=== PATIENT | female | born 1975 | race Caucasian/White ===

== ENCOUNTER 2017-04-04 02:41 | Emergency (ER) | payer BC ==
--- NOTE | 2017-04-04 04:59 | ED NURSING NOTES ---
Clinical Report - Nurses [facility] [address] [place] [address] 04/04/2017 2:42 [id number] Triage time 02:47 Apr 04 2017. Acuity: LEVEL 3. Chief Complaint: CHEST DISCOMFORT. SEPSIS SCREEN: Sepsis Screen: negative. Negative (no infection suspected/documented). --02:52 Ida Montgomery 02:47 04/04/17. BP: 128/64. HR: 80. RR: 20. O2 saturation: 99% on room air. Temp: 98 F (oral). Pain level now: 10. --02:52 Ida Montgomery. Weight: 108.8 kg stated. Height/Length: 63 inches Per Patient. BMI: 42.5. --02:48 Ida Montgomery. Medications Flonase Nasal 2 sprays, 2x a day as needed. Sudafed Oral (Tablet 30 mg). --02:49 Ida Montgomery. Medication/allergy information source: the patient. --02:52 Ida Montgomery. Allergies None. --02:49 Ida Montgomery. History Arrived by private vehicle. Historian: patient. Accompanied by family. Primary physician (aslam). Onset. (few weeks). ( Patient reports chest pain for a few weeks now. She states its off and on and describes it as a pressure. She reports family history of Atrial fibrillation and states she wanted to make sure it was not that.). 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 PAST MEDICAL HX: Immunizations: up-to-date. Last normal menstrual period- 2 weeks ago. SOCIAL HX: Never smoker. Occasional alcohol use. No drug use. No infectious disease exposure. ABUSE ASSESSMENT: No report of abuse. FALL RISK ASSESSMENT: Fall risk assessment completed. No fall risk identified. NUTRITIONAL RISK ASSESSMENT: The nutritional risk assessment revealed no deficiencies. FUNCTIONAL ASSESSMENT: Functional assessment: no impairments noted. LEARNING NEEDS ASSESSMENT: The learning needs assessment revealed no barriers. SKIN INTEGRITY ASSESSMENT: Skin integrity risk assessment completed. No skin integrity risk identified. --02:52 Ida Montgomery. PROBLEMS: Atypical Chest Pain. Paresthesia. Palpitations. Inner Ear Problems. [place] Palsy ?. Headache. Meningitis. ADD - Attention Deficit Disorder. Migraine Headache. --02:49 Ida Montgomery. ADDITIONAL SURGERIES: Cholecystectomy. Lap band. --02:49 Ida Montgomery. Interventions ID band on patient. To treatment room. --02:52 Ida Montgomery. PHYSICAL ASSESSMENT GENERAL / NEURO / PSYCH: Alert. Oriented X 4. Appears in no acute distress. HEENT: Mucous membranes are pink. RESPIRATORY: Respirations not labored. CVS: Normal sinus rhythm noted. GI / : Abdomen soft and nontender. EXTREMITIES: No lower extremity edema. SKIN: Skin is warm and dry. --02:53 Ida Montgomery. NURSING PROGRESS NOTES EKG time: (Apr 04 2017). EKG was performed by a tech and shown to the ED physician. --02: Ida Montgomery electronic device monitor, pulse oximeter and NIBP monitor placed on patient; monitor alarms on. Patient gowned. Reassurance given to the patient. Two patient identifiers checked. Call light placed in reach. Side rails up x 1. Bed placed in lowest position. Brakes of bed on. Patient ready for evaluation- chart flagged and ED physician notified. --02:53 Ida Montgomery 02:53 04/04/2017 Site #1 started via IV in the left antecubital space with an 20g angiocath, with aseptic technique and good blood return; one attempt. Blood drawn: rainbow set. Labeled in the presence of the patient and sent to the lab. Saline lock flushed with 10 mL saline. --02:53 Ida Montgomery 03:09 04/04/17. BP: 120/60. HR: 65. RR: 20. O2 saturation: 96% on room air. Pain level now: 5/10. --03:09 Ida Montgomery 03:40 04/04/2017 Alprazolam PO Tablets 0.5 mg given. Allergies verified, confirmed 5 rights and sedative warning given to the patient and patient's family. --03:40 Ida Montgomery 04:00 04/04/17. BP: 126/69. HR: 65. RR: 20. O2 saturation: 99% on room air. Pain level now: 02/23. --04:55 Ida Montgomery ( Patient has no complaints at this time). --04:55 Ida Montgomery 05:05 04/04/2017 Site #1 removed upon discharge. Catheter intact. Bandaid applied. --05:38 Ida Montgomery. DISPOSITION / DISCHARGE 05:37 04/04/17. Condition at departure: stable. The goals identified in the patient's plan of care were met. No learning barriers present. Discharge instructions provided and reviewed with the patient and spouse. Reviewed medication(s) side effects, precautions, dosing and course information. Prescription(s) given to the patient. Reviewed need for increased fluid intake. Patient and spouse verbalized understanding. Written instructions provided in Bangladeshi. ( Follow up with your PCP in five days. Avoid stimulants and NSAIDS. Continue taking your prilosec as well as the prescribed medications. Return if you have worsening chest pain. Patient and spouse verbalized understanding and had no additional questions at this time.). The patient was discharged by the physician. She was discharged home and accompanied by spouse. She left the Emergency Department ambulatory and via private vehicle. Spouse driving. FALL RISK ASSESSMENT: Fall risk assessment completed. No fall risk identified. --05:37 Ida Montgomery 05:05 04/04/17. BP: 115/67. HR: 60. RR: 18. O2 saturation: 98% on room air. Temp: 97.9 F (oral). Pain level now: 12/24. --05:37 Ida Montgomery. Locked/Released at 04/04/2017 6:20 by Ida Montgomery,
--- NOTE | 2017-04-04 04:59 | ED NURSING NOTES ---
Clinical Report - Nurses [facility] [address] [place] [address] 04/04/2017 2:42 [id number] Triage time 02:47 Apr 04 2017. Acuity: LEVEL 3. Chief Complaint: CHEST DISCOMFORT. SEPSIS SCREEN: Sepsis Screen: negative. Negative (no infection suspected/documented). --02:52 Ida Montgomery 02:47 04/04/17. BP: 128/64. HR: 80. RR: 20. O2 saturation: 99% on room air. Temp: 98 F (oral). Pain level now: 10. --02:52 Ida Montgomery. Weight: 108.8 kg stated. Height/Length: 63 inches Per Patient. BMI: 42.5. --02:48 Ida Montgomery. Medications Flonase Nasal 2 sprays, 2x a day as needed. Sudafed Oral (Tablet 30 mg). --02:49 Ida Montgomery. Medication/allergy information source: the patient. --02:52 Ida Montgomery. Allergies None. --02:49 Ida Montgomery. History Arrived by private vehicle. Historian: patient. Accompanied by family. Primary physician (aslam). Onset. (few weeks). ( Patient reports chest pain for a few weeks now. She states its off and on and describes it as a pressure. She reports family history of Atrial fibrillation and states she wanted to make sure it was not that.). 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 PAST MEDICAL HX: Immunizations: up-to-date. Last normal menstrual period- 2 weeks ago. SOCIAL HX: Never smoker. Occasional alcohol use. No drug use. No infectious disease exposure. ABUSE ASSESSMENT: No report of abuse. FALL RISK ASSESSMENT: Fall risk assessment completed. No fall risk identified. NUTRITIONAL RISK ASSESSMENT: The nutritional risk assessment revealed no deficiencies. FUNCTIONAL ASSESSMENT: Functional assessment: no impairments noted. LEARNING NEEDS ASSESSMENT: The learning needs assessment revealed no barriers. SKIN INTEGRITY ASSESSMENT: Skin integrity risk assessment completed. No skin integrity risk identified. --02:52 Ida Montgomery. PROBLEMS: Atypical Chest Pain. Paresthesia. Palpitations. Inner Ear Problems. [place] Palsy ?. Headache. Meningitis. ADD - Attention Deficit Disorder. Migraine Headache. --02:49 Ida Montgomery. ADDITIONAL SURGERIES: Cholecystectomy. Lap band. --02:49 Ida Montgomery. Interventions ID band on patient. To treatment room. --02:52 Ida Montgomery. PHYSICAL ASSESSMENT GENERAL / NEURO / PSYCH: Alert. Oriented X 4. Appears in no acute distress. HEENT: Mucous membranes are pink. RESPIRATORY: Respirations not labored. CVS: Normal sinus rhythm noted. GI / : Abdomen soft and nontender. EXTREMITIES: No lower extremity edema. SKIN: Skin is warm and dry. --02:53 Ida Montgomery. NURSING PROGRESS NOTES EKG time: (Apr 04 2017). EKG was performed by a tech and shown to the ED physician. --02: Ida Montgomery moose hunter, pulse oximeter and NIBP monitor placed on patient; monitor alarms on. Patient gowned. Reassurance given to the patient. Two patient identifiers checked. Call light placed in reach. Side rails up x 1. Bed placed in lowest position. Brakes of bed on. Patient ready for evaluation- chart flagged and ED physician notified. --02:53 Ida Montgomery 02:53 04/04/2017 Site #1 started via IV in the left antecubital space with an 20g angiocath, with aseptic technique and good blood return; one attempt. Blood drawn: rainbow set. Labeled in the presence of the patient and sent to the lab. Saline lock flushed with 10 mL saline. --02:53 Ida Montgomery 03:09 04/04/17. BP: 120/60. HR: 65. RR: 20. O2 saturation: 96% on room air. Pain level now: 5/10. --03:09 Ida Montgomery 03:40 04/04/2017 Alprazolam PO Tablets 0.5 mg given. Allergies verified, confirmed 5 rights and sedative warning given to the patient and patient's family. --03:40 Ida Montgomery 04:00 04/04/17. BP: 126/69. HR: 65. RR: 20. O2 saturation: 99% on room air. Pain level now: 02/23. --04:55 Ida Montgomery ( Patient has no complaints at this time). --04:55 Ida Montgomery 05:05 04/04/2017 Site #1 removed upon discharge. Catheter intact. Bandaid applied. --05:38 Ida Montgomery. DISPOSITION / DISCHARGE 05:37 04/04/17. Condition at departure: stable. The goals identified in the patient's plan of care were met. No learning barriers present. Discharge instructions provided and reviewed with the patient and spouse. Reviewed medication(s) side effects, precautions, dosing and course information. Prescription(s) given to the patient. Reviewed need for increased fluid intake. Patient and spouse verbalized understanding. Written instructions provided in Estonian. ( Follow up with your PCP in five days. Avoid stimulants and NSAIDS. Continue taking your prilosec as well as the prescribed medications. Return if you have worsening chest pain. Patient and spouse verbalized understanding and had no additional questions at this time.). The patient was discharged by the physician. She was discharged home and accompanied by spouse. She left the Emergency Department ambulatory and via private vehicle. Spouse driving. FALL RISK ASSESSMENT: Fall risk assessment completed. No fall risk identified. --05:37 Ida Montgomery 05:05 04/04/17. BP: 115/67. HR: 60. RR: 18. O2 saturation: 98% on room air. Temp: 97.9 F (oral). Pain level now: 12/24. --05:37 Ida Montgomery. Locked/Released at 04/04/2017 6:20 by Ida Montgomery,
--- NOTE | 2017-04-04 04:59 | ED CLINICAL REPORT ---
Clinical Report - Physicians/Mid Levels [facility] [address] [place] [address] 04/04/2017 2:42 Patient: SUSANA DAVIS Time Seen: 03:15 Apr 04 2017. Arrived- By private vehicle. Historian- patient. CPT: ER phys charges level 4 plus (#[id number]). EKG interpretation (#[id number]). HISTORY OF PRESENT ILLNESS Chief Complaint: CHEST PAIN. 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 ( Patient reports chest pain for a few weeks now. She states its off and on and describes it as a pressure. She reports family history of Atrial fibrillation and states she wanted to make sure it was not that.). and is still present. Onset during light activity. At its maximum, severity described as mild. When seen in the E.D., it was almost gone. Modifying factors. Not worsened by anything. Not relieved by anything. It is described as pressure and it is described as located in the central chest area. No nausea, vomiting, difficulty breathing or diaphoresis. Similar symptoms previously: None. Recent medical care: Not recently seen/assessed. REVIEW OF SYSTEMS No fever, chills, cough, pedal edema or calf pain. No fainting episodes, sore throat, abdominal pain, black stools or difficulty with urination. No skin rash, enlarged lymph nodes or joint pain. All systems otherwise negative, except as recorded above. PAST HISTORY Atypical Chest Pain. Paresthesia. Palpitations. Inner Ear Problems. [place] Palsy ?. Headache. Meningitis. ADD - Attention Deficit Disorder. Migraine Headache. ADDITIONAL SURGERIES: Cholecystectomy. Lap band. Medications: Flonase Nasal 2 sprays, 2x a day as needed. Sudafed Oral (Tablet 30 mg). Allergies: None. SOCIAL HISTORY Never smoker. Occasional alcohol use. No drug use. ADDITIONAL NOTES The nursing notes have been reviewed. PHYSICAL EXAM Vital Signs: 04/04/2017 02:47 BP: 128/64. HR: 80. RR: 20. O2 saturation: 99%. Temp: 98 F. Pain level now: 5/10. Appearance: Alert. No acute distress. Anxious. Eyes: Pupils equal, round and reactive to light. Eyes normal inspection. ENT: Ears normal. Nose normal. Pharynx normal. Neck: Normal inspection. Neck supple. CVS: Normal heart rate and rhythm. Heart sounds normal. Pulses normal. Rhythm normal. No cardiac murmur or extra heart sounds. Respiratory: No respiratory distress. Breath sounds normal. Chest nontender. Abdomen: Soft. Moderate tenderness in the epigastric area. Bowel sounds normal. Back: Normal external inspection. Skin: Skin warm. Normal skin color. No rash. Extremities: Extremities exhibit normal ROM. No calf tenderness. No lower extremity edema. Neuro: Oriented X 3. No motor deficit. No sensory deficit. Reflexes normal. LABS, X-RAYS, AND EKG EKG: Normal sinus rhythm. Normal P waves. Normal JUAN M. Q waves in lead V1, V2 and V3. Poor R wave progression. Normal axis. Mild T wave inversion in lead III, aVF and V1. Prior EKG unavailable. The study has been interpreted contemporaneously. The study has been independently viewed by me. The EKG appears to be a good tracing. Chest X-ray: Normal Chest X-Ray. Laboratory Tests: CBC w Diff: (GLADYS: 04/04/2017 02:45) ( [facility] 04[facility]04[facility] 03:42) Final results Test Result Flag Units (Reference) WHITE BLOOD COUNT 9.7 K/uL (4.5-11.5) RED BLOOD COUNT 4.62 M/uL (4.00-5.20) HEMOGLOBIN 13.6 gm/dL (12.0-16.0) HEMATOCRIT 41.5 % (36.0-46.0) MEAN CELL VOLUME 90 fL (80-100) MEAN CORPUSCULAR HGB 29 pg (26-34) MEAN CORPUSCULAR HGB CONC 33 g/dL (31-37) RED CELL DISTRIBUTION WIDTH 13.4 % (11.6-14.8) PLATELET COUNT 206 K/uL (150-400) LYMPH % 34.6 % (25-40) MONO % 5.2 % (3-14) GRANULOCYTE % 60.2 (53-90) [id number]: (GLADYS: 04/04/2017 02:45) ( [facility] 04/04/2017 03:42) Final results Test Result Flag Units (Reference) D-DIMER QUANTITATIVE < 0.27 L ug/mLFEU (0.27-0.52) The primary value of this quantitative assay relates toits negative predictive value (i.e. exclusion) of pulmonaryembolism/deep vein thrombosis/DIC.Elevated levels of d-dimer may also occur with:, age, cancer, inflammation, liver disease,post-op, infection, hematoma, coronary disease, peripheralarteriopathy, bleeding disorders and thrombolytic treatment.Results should be correlated with other clinical andradiological data.Testing Methodology: Latex Immunoassay BNP: (GLADYS: 04/04/2017 02:45) ( [facility] 04/04/2017 03:52) Final results Test Result Flag Units (Reference) B-TYPE NATRIURETIC PEPTIDE 34.5 pg/ml (5-100) TSH: (GLADYS: 04/04/2017 02:45) ( [facility] 04/04/2017 03:51) Final results Test Result Flag Units (Reference) THYROID STIMULATING HORMONE 2.396 uIU/mL (0.34-3.74) CHEM 13 PANEL: (GLADYS: 04/04/2017 02:45) ( [facility] 04/04/2017 03:51) Final results Test Result Flag Units (Reference) GLUCOSE 109 mg/dL (70-110) BUN 13 mg/dL (7-18) CREATININE 0.9 mg/dL (0.6-1.3) Estimated GFR >60 mL/min Estimated GFR- >60 mL/min Note: Persistent reduction over 3 months in eGFR<60 mL/min/1.73 m2 defines CKD. Patients with eGFR values>=60 mL/min/1.73 m2 may also have CKD if evidence ofpersistent proteinuria. Additional information may be foundat www.kidney.org. SODIUM 137 mmol/L (136-145) POTASSIUM 3.5 mmol/L (3.5-5.1) CHLORIDE 104 mmol/L (98-107) CARBON DIOXIDE 27 mmol/L (21-32) CALCIUM 8.8 mg/dL (8.5-10.1) TOTAL PROTEIN 7.5 g/dL (6.4-8.2) ALBUMIN 3.4 g/dL (3.3-5.0) BILIRUBIN, TOTAL 0.3 mg/dL (0.0-1.0) ALKALINE PHOSPHATASE 76 U/L (46-116) AST (SGOT) 13 L U/L (15-37) ALT (SGPT) 32 U/L (12-78) MAGNESIUM 1.8 mg/dL (1.8-2.4) CPK 82 U/L (24-260) TROPONIN I <0.05 L ng/mL (0.00-1.5) TROPONIN REFERENCE RANGE:<0.1 NEGATIVE0.1-1.5 INDETERMINANT>1.5 POSITIVE . PROGRESS AND PROCEDURES Course of Care: 04:59 04/04/17. Much better after xanax. Still has some mild epigastric pain on palpation. Does have a hx of reflux and symptoms of esophagitis on exam. Patient/family counseled. Disposition: Discharged. Condition: stable and improved. CLINICAL IMPRESSION Atypical chest pain .12 lead EKG performed. INSTRUCTIONS No strenuous activity. Rest. Do not work for two days until better. Avoid stimulants (such as cigarettes, coffee, cold medicines, sinus medicines, street drugs). Avoid alcohol and NSAIDS. Examples of NSAIDS include aspirin, ibuprofen (Advil) and naproxen (Aleve). Avoid spicy foods. Other diet: Avoid caffeine. (Continue prilosec at 40 mg a day.). Warnings: Further evaluation is necessary. GENERAL WARNINGS: Return or contact your physician immediately if your condition worsens or changes unexpectedly, if not improving as expected, or if other problems arise. Your Current Medications: CONTINUE TAKING THE FOLLOWING MEDICATIONS: Flonase Nasal : 2 sprays 2x a day, prn. Sudafed Oral : Tablet 30 mg. Prescription Medications: Alprazolam 0.5 mg: take 1 orally every 8 hours as needed for anxiety or sleep. Dispense fifteen (15). No refill. Carafate 1 gm tablets: take 1 orally four times daily (1 hour before meals and at bedtime). Dispense sixty (60). No refills. Substitution is permissible. Follow-up: Follow up with your doctor in five days. Call for an appointment. Understanding of the discharge instructions verbalized by patient. Discharge instructions reviewed with and understanding was verbalized by spouse. (Electronically signed by Luigi Malik MD 04/04/2017 20:49)
--- NOTE | 2017-04-04 04:59 | ED ORDER SUMMARY ---
..... 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) (03:04/04/2017 Patti STEPHENS) (3:29 RKaruga) Chest 1V Urgent (03:04/04/2017 Patti STEPHENS) (Ack 3:30 RKaruga) (3:30 RFay) Cardiac Panel Stat (03:04/04/2017 Patti STEPHENS) (Ack 3:30 [place]) (4:15 HSoule) BNP Urgent (03:04/04/2017 Patti STEPHENS) (Ack 3:30 [place]) (4:15 HSoule) D-Dimer Urgent (03:04/04/2017 Patti STEPHENS) (Ack 3:30 RKaruga) (3:49 HSoule) TSH Urgent (03:04/04/2017 Patti STEPHENS) (Ack 3:30 RKaruga) (4:15 HSoule) Oxygen (2 L/min) (NC) (03:04/04/2017 Patti STEPHENS) (3:29 RKaruga) Pulse oximeter (03:04/04/2017 Patti STEPHENS) (3:29 RKaruga) EKG - ER Stat (:04/04/2017 Patti STEPHENS) (3:29 RKaruga) MEDICATION ORDERS: Alprazolam PO 0.5 mg (NOW) (03:04/04/2017 Patti STEPHENS) (Ack 3:32 HSoule) (3:40 HSoule) IV FLUIDS: IV Saline Lock (:04/04/2017 Patti STEPHENS) (3:32 HSoule) ORDER SHEET NOTES: [Electronically signed by Ida Montgomery (06:20 04/04/2017)] [Electronically signed by Luigi Malik MD (20:49 04/04/2017)] [Electronically locked/signed by Ida Montgomery (06:20 04/04/2017)]
--- NOTE | 2017-04-04 04:59 | ED CLINICAL REPORT ---
Clinical Report - Physicians/Mid Levels [facility] [address] [place] [address] 04/04/2017 2:42 Patient: SUSANA DAVIS Time Seen: 03:15 Apr 04 2017. Arrived- By private vehicle. Historian- patient. CPT: ER phys charges level 4 plus (#[id number]). EKG interpretation (#[id number]). HISTORY OF PRESENT ILLNESS Chief Complaint: CHEST PAIN. 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 ( Patient reports chest pain for a few weeks now. She states its off and on and describes it as a pressure. She reports family history of Atrial fibrillation and states she wanted to make sure it was not that.). and is still present. Onset during light activity. At its maximum, severity described as mild. When seen in the E.D., it was almost gone. Modifying factors. Not worsened by anything. Not relieved by anything. It is described as pressure and it is described as located in the central chest area. No nausea, vomiting, difficulty breathing or diaphoresis. Similar symptoms previously: None. Recent medical care: Not recently seen/assessed. REVIEW OF SYSTEMS No fever, chills, cough, pedal edema or calf pain. No fainting episodes, sore throat, abdominal pain, black stools or difficulty with urination. No skin rash, enlarged lymph nodes or joint pain. All systems otherwise negative, except as recorded above. PAST HISTORY Atypical Chest Pain. Paresthesia. Palpitations. Inner Ear Problems. [place] Palsy ?. Headache. Meningitis. ADD - Attention Deficit Disorder. Migraine Headache. ADDITIONAL SURGERIES: Cholecystectomy. Lap band. Medications: Flonase Nasal 2 sprays, 2x a day as needed. Sudafed Oral (Tablet 30 mg). Allergies: None. SOCIAL HISTORY Never smoker. Occasional alcohol use. No drug use. ADDITIONAL NOTES The nursing notes have been reviewed. PHYSICAL EXAM Vital Signs: 04/04/2017 02:47 BP: 128/64. HR: 80. RR: 20. O2 saturation: 99%. Temp: 98 F. Pain level now: 5/10. Appearance: Alert. No acute distress. Anxious. Eyes: Pupils equal, round and reactive to light. Eyes normal inspection. ENT: Ears normal. Nose normal. Pharynx normal. Neck: Normal inspection. Neck supple. CVS: Normal heart rate and rhythm. Heart sounds normal. Pulses normal. Rhythm normal. No cardiac murmur or extra heart sounds. Respiratory: No respiratory distress. Breath sounds normal. Chest nontender. Abdomen: Soft. Moderate tenderness in the epigastric area. Bowel sounds normal. Back: Normal external inspection. Skin: Skin warm. Normal skin color. No rash. Extremities: Extremities exhibit normal ROM. No calf tenderness. No lower extremity edema. Neuro: Oriented X 3. No motor deficit. No sensory deficit. Reflexes normal. LABS, X-RAYS, AND EKG EKG: Normal sinus rhythm. Normal P waves. Normal JUAN M. Q waves in lead V1, V2 and V3. Poor R wave progression. Normal axis. Mild T wave inversion in lead III, aVF and V1. Prior EKG unavailable. The study has been interpreted contemporaneously. The study has been independently viewed by me. The EKG appears to be a good tracing. Chest X-ray: Normal Chest X-Ray. Laboratory Tests: CBC w Diff: (GLADYS: 04/04/2017 02:45) ( [facility] Final results Test Result Flag Units (Reference) WHITE BLOOD COUNT 9.7 K/uL (4.5-11.5) RED BLOOD COUNT 4.62 M/uL (4.00-5.20) HEMOGLOBIN 13.6 gm/dL (12.0-16.0) HEMATOCRIT 41.5 % (36.0-46.0) MEAN CELL VOLUME 90 fL (80-100) MEAN CORPUSCULAR HGB 29 pg (26-34) MEAN CORPUSCULAR HGB CONC 33 g/dL (31-37) RED CELL DISTRIBUTION WIDTH 13.4 % (11.6-14.8) PLATELET COUNT 206 K/uL (150-400) LYMPH % 34.6 % (25-40) MONO % 5.2 % (3-14) GRANULOCYTE % 60.2 (53-90) [id number]: (GLADYS: 04/04/2017 02:45) ( [facility] 04/04/2017 03:42) Final results Test Result Flag Units (Reference) D-DIMER QUANTITATIVE < 0.27 L ug/mLFEU (0.27-0.52) The primary value of this quantitative assay relates toits negative predictive value (i.e. exclusion) of pulmonaryembolism/deep vein thrombosis/DIC.Elevated levels of d-dimer may also occur with:, age, cancer, inflammation, liver disease,post-op, infection, hematoma, coronary disease, peripheralarteriopathy, bleeding disorders and thrombolytic treatment.Results should be correlated with other clinical andradiological data.Testing Methodology: Latex Immunoassay BNP: (GLADYS: 04/04/2017 02:45) ( [facility] 04/04/2017 03:52) Final results Test Result Flag Units (Reference) B-TYPE NATRIURETIC PEPTIDE 34.5 pg/ml (5-100) TSH: (GLADYS: 04/04/2017 02:45) ( [facility] 04/04/2017 03:51) Final results Test Result Flag Units (Reference) THYROID STIMULATING HORMONE 2.396 uIU/mL (0.34-3.74) CHEM 13 PANEL: (GLADYS: 04/04/2017 02:45) ( [facility] 04/04/2017 03:51) Final results Test Result Flag Units (Reference) GLUCOSE 109 mg/dL (70-110) BUN 13 mg/dL (7-18) CREATININE 0.9 mg/dL (0.6-1.3) Estimated GFR >60 mL/min Estimated GFR- >60 mL/min Note: Persistent reduction over 3 months in eGFR<60 mL/min/1.73 m2 defines CKD. Patients with eGFR values>=60 mL/min/1.73 m2 may also have CKD if evidence ofpersistent proteinuria. Additional information may be foundat www.kidney.org. SODIUM 137 mmol/L (136-145) POTASSIUM 3.5 mmol/L (3.5-5.1) CHLORIDE 104 mmol/L (98-107) CARBON DIOXIDE 27 mmol/L (21-32) CALCIUM 8.8 mg/dL (8.5-10.1) TOTAL PROTEIN 7.5 g/dL (6.4-8.2) ALBUMIN 3.4 g/dL (3.3-5.0) BILIRUBIN, TOTAL 0.3 mg/dL (0.0-1.0) ALKALINE PHOSPHATASE 76 U/L (46-116) AST (SGOT) 13 L U/L (15-37) ALT (SGPT) 32 U/L (12-78) MAGNESIUM 1.8 mg/dL (1.8-2.4) CPK 82 U/L (24-260) TROPONIN I <0.05 L ng/mL (0.00-1.5) TROPONIN REFERENCE RANGE:<0.1 NEGATIVE0.1-1.5 INDETERMINANT>1.5 POSITIVE . PROGRESS AND PROCEDURES Course of Care: 04:59 04/04/17. Much better after xanax. Still has some mild epigastric pain on palpation. Does have a hx of reflux and symptoms of esophagitis on exam. Patient/family counseled. Disposition: Discharged. Condition: stable and improved. CLINICAL IMPRESSION Atypical chest pain .12 lead EKG performed. INSTRUCTIONS No strenuous activity. Rest. Do not work for two days until better. Avoid stimulants (such as cigarettes, coffee, cold medicines, sinus medicines, street drugs). Avoid alcohol and NSAIDS. Examples of NSAIDS include aspirin, ibuprofen (Advil) and naproxen (Aleve). Avoid spicy foods. Other diet: Avoid caffeine. (Continue prilosec at 40 mg a day.). Warnings: Further evaluation is necessary. GENERAL WARNINGS: Return or contact your physician immediately if your condition worsens or changes unexpectedly, if not improving as expected, or if other problems arise. Your Current Medications: CONTINUE TAKING THE FOLLOWING MEDICATIONS: Flonase Nasal : 2 sprays 2x a day, prn. Sudafed Oral : Tablet 30 mg. Prescription Medications: Alprazolam 0.5 mg: take 1 orally every 8 hours as needed for anxiety or sleep. Dispense fifteen (15). No refill. Carafate 1 gm tablets: take 1 orally four times daily (1 hour before meals and at bedtime). Dispense sixty (60). No refills. Substitution is permissible. Follow-up: Follow up with your doctor in five days. Call for an appointment. Understanding of the discharge instructions verbalized by patient. Discharge instructions reviewed with and understanding was verbalized by spouse. (Electronically signed by Luigi Malik MD 04/04/2017 20:49)
--- NOTE | 2017-04-04 04:59 | ED ORDER SUMMARY ---
..... 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) (03:04/04/2017 Patti STEPHENS) (3:29 RKaruga) Chest 1V Urgent (03:04/04/2017 Patti STEPHENS) (Ack 3:30 RKaruga) (3:30 RFay) Cardiac Panel Stat (03:04/04/2017 Patti STEPHENS) (Ack 3:30 [place]) (4:15 HSoule) BNP Urgent (03:04/04/2017 Patti STEPHENS) (Ack 3:30 [place]) (4:15 HSoule) D-Dimer Urgent (03:04/04/2017 Patti STEPHENS) (Ack 3:30 RKaruga) (3:49 HSoule) TSH Urgent (03:04/04/2017 Patti STEPHENS) (Ack 3:30 RKaruga) (4:15 HSoule) Oxygen (2 L/min) (NC) (03:04/04/2017 Patti STEPHENS) (3:29 RKaruga) Pulse oximeter (03:04/04/2017 Patti STEPHENS) (3:29 RKaruga) EKG - ER Stat (:04/04/2017 Patti STEPHENS) (3:29 RKaruga) MEDICATION ORDERS: Alprazolam PO 0.5 mg (NOW) (03:04/04/2017 Patti STEPHENS) (Ack 3:32 HSoule) (3:40 HSoule) IV FLUIDS: IV Saline Lock (:04/04/2017 Patti STEPHENS) (3:32 HSoule) ORDER SHEET NOTES: [Electronically signed by Ida Montgomery (06:20 04/04/2017)] [Electronically signed by Luigi Malik MD (20:49 04/04/2017)] [Electronically locked/signed by Ida Montgomery (06:20 04/04/2017)]
--- NOTE | 2017-04-04 08:13 | DIAGNOSTIC IMAGING REPORT ---
PROCEDURE: XR CHEST 1 VIEW INDICATION: CHEST PAIN TECHNIQUE: Single view chest. 03:32 hours COMPARISON: 08/26/2016 FINDINGS: The cardiopulmonary contour and central vasculature are stable, within normal limits. The lungs are clear without focal consolidation, pleural effusion or pneumothorax. The osseous structures are intact. IMPRESSION: 1. No evidence of acute cardiopulmonary disease.
--- NOTE | 2017-04-04 20:49 | ED MED RECONCILIATION SUMMARY ---
Patient: SUSANA DAVIS Medication Reconciliation Report [facility] VisitID: [id number] [address] [place] [address] 41y, F Registration Date/Time: 04/04/2017 Weight: 108.8 kg Height/Length: 63 in. BMI: 42.5 ALLERGIES: None The patient's Home Medications are listed below: CONTINUE TAKING THE FOLLOWING MEDICATIONS: Flonase Nasal 2 sprays, 2x a day Sudafed Oral (30 mg) The source(s) of the original Home Medication information: patient The following Medications were given to the patient in the Emergency Department: Alprazolam [PO] PO 0.5 mg, administered: 04/04/2017 3:40:00 AM The following Medications were prescribed to the patient: Alprazolam 0.5 mg: take 1 orally every 8 hours as needed for anxiety or sleep. Dispense fifteen (15). No refill. -- Luigi Malik MD Carafate 1 gm tablets: take 1 orally four times daily (1 hour before meals and at bedtime). Dispense sixty (60). No refills. Substitution is permissible. -- Luigi Malik MD
--- NOTE | 2017-04-04 20:49 | ED DISCHARGE INSTRUCTIONS ---
Patient: SUSANA DAVIS General Instructions [facility] VisitID: [id number] [place] [address] 41y, F Registration Date/Time: 04/04/2017 Atypical chest pain .12 lead EKG performed. INSTRUCTIONS No strenuous activity. Rest. Do not work for two days until better. Avoid stimulants (such as cigarettes, coffee, cold medicines, sinus medicines, street drugs). Avoid alcohol and NSAIDS. Examples of NSAIDS include aspirin, ibuprofen (Advil) and naproxen (Aleve). Avoid spicy foods. Other diet: Avoid caffeine. (Continue prilosec at 40 mg a day.). Warnings: Further evaluation is necessary. GENERAL WARNINGS: Return or contact your physician immediately if your condition worsens or changes unexpectedly, if not improving as expected, or if other problems arise. Your Current Medications: CONTINUE TAKING THE FOLLOWING MEDICATIONS: Flonase Nasal : 2 sprays 2x a day, prn. Sudafed Oral : Tablet 30 mg. Prescription Medications: Alprazolam 0.5 mg: take 1 orally every 8 hours as needed for anxiety or sleep. Dispense fifteen (15). No refill. Carafate 1 gm tablets: take 1 orally four times daily (1 hour before meals and at bedtime). Dispense sixty (60). No refills. Substitution is permissible. Follow-up: Follow up with your doctor in five days. Call for an appointment. Understanding of the discharge instructions verbalized by patient. Discharge instructions reviewed with and understanding was verbalized by spouse. ADDITIONAL INFORMATION Chest Pain, Noncardiac Based on your visit today, the exact cause of your chest pain is not certain. Your condition does not seem serious and your pain does not appear to be coming from your heart. However, sometimes the signs of a serious problem take more time to appear. Therefore, please watch for the warning signs listed below. Home Care: Rest today and avoid strenuous activity. Take any prescribed medicine as directed. Follow Up with your doctor or this facility as instructed or if you do not start to feel better within 24 hours. Get Prompt Medical Attention if any of the following occur: A change in the type of pain: if it feels different, becomes more severe, lasts longer, or begins to spread into your shoulder, arm, neck, jaw or back Shortness of breath or increased pain with breathing Cough with dark colored sputum (phlegm) or blood Weakness, dizziness, or fainting Fever of 100.4F (38C) or higher, or as directed by your healthcare provider Swelling, pain or redness in one leg [place] Diet A bland diet is used for patients with an upset stomach. It consists of foods that are mild and easy to digest. It is better to eat small frequent meals rather than three large meals a day. BEVERAGES OK: Fruit juices, non-caffeinated teas and coffee, non-carbonated contreras AVOID: Carbonated beverage, caffeinated tea and coffee, all alcoholic beverages BREAD OK: Refined white, wheat or rye bread, varun or soda crackers, [place] toast, plain rolls, bagels AVOID: Whole-grain bread CEREAL OK: Refined cereals: cooked or ready to eat AVOID: Whole grain cereals and granola, or those containing bran, seeds or nuts DESSERTS OK: Peanut butter and all others except those to "avoid" AVOID: Chocolate, cocoa, coconut, popcorn, nuts, seeds, jam, marmalade FRUITS OK: Canned, cooked, frozen or fresh fruits without seeds or tough skin AVOID: Olives, skin and seeds of fruit MEATS OK: All fresh or preserved meat, fish and fowl AVOID: Any that are prepared with those spices to "avoid" CHEESE & EGGS OK: Eggs, cottage cheese, cream cheese, other cheeses AVOID: All cheeses made with those spices to "avoid" POTATOES & PASTA OK: Potato, rice, macaroni, noodles, spaghetti AVOID: None SOUPS OK: All soups without heavy seasoning AVOID: Soups made with those spices to "avoid" VEGETABLES OK: Canned, cooked, fresh or frozen mildly flavored vegetables without seeds, skins or coarse fiber AVOID: Vegetables prepared with those spices to "avoid"; skin and seeds of vegetables and those with coarse fiber SPICES OK: Salt, lemon and [place] juice, vinegar, all extracts, brad, cinnamon, thyme, mace, allspice, paprika AVOID: [place] powder, cloves, pepper, seed spices, garlic, gravy pickles, highly seasoned salad dressings Alprazolam Oral tablet What is this medicine? ALPRAZOLAM (estefania pimentel iqbal) is a benzodiazepine. It is used to treat anxiety and panic attacks. How should I use this medicine? Take this medicine by mouth with a glass of water. Follow the directions on the prescription label. Take your medicine at regular intervals. Do not take it more often than directed. If you have been taking this medicine regularly for some time, do not suddenly stop taking it. You must gradually reduce the dose or you may get severe side effects. Ask your doctor or health day care home provider for advice. Even after you stop taking this medicine it can still affect your body for several days. Talk to your rail track layer regarding the use of this medicine in children. Special care may be needed. What side effects may I notice from receiving this medicine? Side effects that you should report to your doctor or health day care home provider as soon as possible: allergic reactions like skin rash, itching or hives, swelling of the face, lips, or tongue confusion, forgetfulness depression difficulty sleeping difficulty speaking feeling faint or lightheaded, falls mood changes, excitability or aggressive behavior muscle cramps trouble passing urine or change in the amount of urine unusually weak or tired Side effects that usually do not require medical attention (report to your doctor or health day care home provider if they continue or are bothersome): change in sex drive or performance changes in appetite What may interact with this medicine? Do not take this medicine with any of the following medications: certain medicines for HIV infection or AIDS ketoconazole itraconazole This medicine may also interact with the following medications: control pills certain macrolide antibiotics like clarithromycin, erythromycin, troleandomycin cimetidine cyclosporine ergotamine grapefruit juice herbal or dietary supplements like kava kava, melatonin, dehydroepiandrosterone, DHEA, [place]'s Wort or valerian imatinib, [id number] isoniazid levodopa medicines for depression, anxiety, or psychotic disturbances prescription pain medicines rifampin, rifapentine, or rifabutin some medicines for blood pressure or heart problems some medicines for seizures like carbamazepine, oxcarbazepine, phenobarbital, phenytoin, primidone What if I miss a dose? If you miss a dose, take it as soon as you can. If it is almost time for your next dose, take only that dose. Do not take double or extra doses. Where should I keep my medicine? Keep out of the reach of children. This medicine can be abused. Keep your medicine in a safe place to protect it from theft. Do not share this medicine with anyone. Selling or giving away this medicine is dangerous and against the law. Store at room temperature between 20 and 25 degrees C (68 and 77 degrees F). Throw away any unused medicine after the expiration date. What should I tell my health care provider before I take this medicine? They need to know if you have any of these conditions: an alcohol or drug abuse problem bipolar disorder, depression, psychosis or other mental health conditions glaucoma kidney or liver disease lung or breathing disease myasthenia gravis Parkinson's disease porphyria seizures or a history of seizures suicidal thoughts an unusual or allergic reaction to alprazolam, other benzodiazepines, foods, dyes, or preservatives or trying to get breast-feeding What should I watch for while using this medicine? Visit your doctor or health day care home provider for regular checks on your progress. Your body can become dependent on this medicine. Ask your doctor or health day care home provider if you still need to take it. You may get drowsy or dizzy. Do not drive, use machinery, or do anything that needs mental alertness until you know how this medicine affects you. To reduce the risk of dizzy and fainting spells, do not stand or sit up quickly, especially if you are an older patient. Alcohol may increase dizziness and drowsiness. Avoid alcoholic drinks. Do not treat yourself for coughs, colds or allergies without asking your doctor or health day care home provider for advice. Some ingredients can increase possible side effects. You have been given the following additional information: Chest Pain, Noncardiac Diet, [place] (Adult) Alprazolam Oral tablet No strenuous activity. Rest. Do not work for two days until better. (Electronically signed by Luigi Malik MD 04/04/2017 20:49)
--- NOTE | 2017-04-04 20:49 | ED MED RECONCILIATION SUMMARY ---
Patient: SUSANA DAVIS Medication Reconciliation Report [facility] VisitID: [id number] [address] [place] [address] 41y, F Registration Date/Time: 04/04/2017 Weight: 108.8 kg Height/Length: 63 in. BMI: 42.5 ALLERGIES: None The patient's Home Medications are listed below: CONTINUE TAKING THE FOLLOWING MEDICATIONS: Flonase Nasal 2 sprays, 2x a day Sudafed Oral (30 mg) The source(s) of the original Home Medication information: patient The following Medications were given to the patient in the Emergency Department: Alprazolam [PO] PO 0.5 mg, administered: 04/04/2017 3:40:00 AM The following Medications were prescribed to the patient: Alprazolam 0.5 mg: take 1 orally every 8 hours as needed for anxiety or sleep. Dispense fifteen (15). No refill. -- Luigi Malik MD Carafate 1 gm tablets: take 1 orally four times daily (1 hour before meals and at bedtime). Dispense sixty (60). No refills. Substitution is permissible. -- Luigi Malik MD
--- NOTE | 2017-04-04 20:49 | ED DISCHARGE INSTRUCTIONS ---
Patient: SUSANA DAVIS General Instructions [facility] VisitID: [id number] [place] [address] 41y, F Registration Date/Time: 04/04/2017 Atypical chest pain .12 lead EKG performed. INSTRUCTIONS No strenuous activity. Rest. Do not work for two days until better. Avoid stimulants (such as cigarettes, coffee, cold medicines, sinus medicines, street drugs). Avoid alcohol and NSAIDS. Examples of NSAIDS include aspirin, ibuprofen (Advil) and naproxen (Aleve). Avoid spicy foods. Other diet: Avoid caffeine. (Continue prilosec at 40 mg a day.). Warnings: Further evaluation is necessary. GENERAL WARNINGS: Return or contact your physician immediately if your condition worsens or changes unexpectedly, if not improving as expected, or if other problems arise. Your Current Medications: CONTINUE TAKING THE FOLLOWING MEDICATIONS: Flonase Nasal : 2 sprays 2x a day, prn. Sudafed Oral : Tablet 30 mg. Prescription Medications: Alprazolam 0.5 mg: take 1 orally every 8 hours as needed for anxiety or sleep. Dispense fifteen (15). No refill. Carafate 1 gm tablets: take 1 orally four times daily (1 hour before meals and at bedtime). Dispense sixty (60). No refills. Substitution is permissible. Follow-up: Follow up with your doctor in five days. Call for an appointment. Understanding of the discharge instructions verbalized by patient. Discharge instructions reviewed with and understanding was verbalized by spouse. ADDITIONAL INFORMATION Chest Pain, Noncardiac Based on your visit today, the exact cause of your chest pain is not certain. Your condition does not seem serious and your pain does not appear to be coming from your heart. However, sometimes the signs of a serious problem take more time to appear. Therefore, please watch for the warning signs listed below. Home Care: Rest today and avoid strenuous activity. Take any prescribed medicine as directed. Follow Up with your doctor or this facility as instructed or if you do not start to feel better within 24 hours. Get Prompt Medical Attention if any of the following occur: A change in the type of pain: if it feels different, becomes more severe, lasts longer, or begins to spread into your shoulder, arm, neck, jaw or back Shortness of breath or increased pain with breathing Cough with dark colored sputum (phlegm) or blood Weakness, dizziness, or fainting Fever of 100.4F (38C) or higher, or as directed by your healthcare provider Swelling, pain or redness in one leg [place] Diet A bland diet is used for patients with an upset stomach. It consists of foods that are mild and easy to digest. It is better to eat small frequent meals rather than three large meals a day. BEVERAGES OK: Fruit juices, non-caffeinated teas and coffee, non-carbonated contreras AVOID: Carbonated beverage, caffeinated tea and coffee, all alcoholic beverages BREAD OK: Refined white, wheat or rye bread, varun or soda crackers, [place] toast, plain rolls, bagels AVOID: Whole-grain bread CEREAL OK: Refined cereals: cooked or ready to eat AVOID: Whole grain cereals and granola, or those containing bran, seeds or nuts DESSERTS OK: Peanut butter and all others except those to "avoid" AVOID: Chocolate, cocoa, coconut, popcorn, nuts, seeds, jam, marmalade FRUITS OK: Canned, cooked, frozen or fresh fruits without seeds or tough skin AVOID: Olives, skin and seeds of fruit MEATS OK: All fresh or preserved meat, fish and fowl AVOID: Any that are prepared with those spices to "avoid" CHEESE & EGGS OK: Eggs, cottage cheese, cream cheese, other cheeses AVOID: All cheeses made with those spices to "avoid" POTATOES & PASTA OK: Potato, rice, macaroni, noodles, spaghetti AVOID: None SOUPS OK: All soups without heavy seasoning AVOID: Soups made with those spices to "avoid" VEGETABLES OK: Canned, cooked, fresh or frozen mildly flavored vegetables without seeds, skins or coarse fiber AVOID: Vegetables prepared with those spices to "avoid"; skin and seeds of vegetables and those with coarse fiber SPICES OK: Salt, lemon and [place] juice, vinegar, all extracts, brad, cinnamon, thyme, mace, allspice, paprika AVOID: [place] powder, cloves, pepper, seed spices, garlic, gravy pickles, highly seasoned salad dressings Alprazolam Oral tablet What is this medicine? ALPRAZOLAM (estefania pimentel iqbal) is a benzodiazepine. It is used to treat anxiety and panic attacks. How should I use this medicine? Take this medicine by mouth with a glass of water. Follow the directions on the prescription label. Take your medicine at regular intervals. Do not take it more often than directed. If you have been taking this medicine regularly for some time, do not suddenly stop taking it. You must gradually reduce the dose or you may get severe side effects. Ask your doctor or health med care manager for advice. Even after you stop taking this medicine it can still affect your body for several days. Talk to your remelt sugar boiler regarding the use of this medicine in children. Special care may be needed. What side effects may I notice from receiving this medicine? Side effects that you should report to your doctor or health med care manager as soon as possible: allergic reactions like skin rash, itching or hives, swelling of the face, lips, or tongue confusion, forgetfulness depression difficulty sleeping difficulty speaking feeling faint or lightheaded, falls mood changes, excitability or aggressive behavior muscle cramps trouble passing urine or change in the amount of urine unusually weak or tired Side effects that usually do not require medical attention (report to your doctor or health med care manager if they continue or are bothersome): change in sex drive or performance changes in appetite What may interact with this medicine? Do not take this medicine with any of the following medications: certain medicines for HIV infection or AIDS ketoconazole itraconazole This medicine may also interact with the following medications: control pills certain macrolide antibiotics like clarithromycin, erythromycin, troleandomycin cimetidine cyclosporine ergotamine grapefruit juice herbal or dietary supplements like kava kava, melatonin, dehydroepiandrosterone, DHEA, Bettendorf's Wort or valerian imatinib, STI-571 isoniazid levodopa medicines for depression, anxiety, or psychotic disturbances prescription pain medicines rifampin, rifapentine, or rifabutin some medicines for blood pressure or heart problems some medicines for seizures like carbamazepine, oxcarbazepine, phenobarbital, phenytoin, primidone What if I miss a dose? If you miss a dose, take it as soon as you can. If it is almost time for your next dose, take only that dose. Do not take double or extra doses. Where should I keep my medicine? Keep out of the reach of children. This medicine can be abused. Keep your medicine in a safe place to protect it from theft. Do not share this medicine with anyone. Selling or giving away this medicine is dangerous and against the law. Store at room temperature between 20 and 25 degrees C (68 and 77 degrees F). Throw away any unused medicine after the expiration date. What should I tell my health care provider before I take this medicine? They need to know if you have any of these conditions: an alcohol or drug abuse problem bipolar disorder, depression, psychosis or other mental health conditions glaucoma kidney or liver disease lung or breathing disease myasthenia gravis Parkinson's disease porphyria seizures or a history of seizures suicidal thoughts an unusual or allergic reaction to alprazolam, other benzodiazepines, foods, dyes, or preservatives or trying to get breast-feeding What should I watch for while using this medicine? Visit your doctor or health med care manager for regular checks on your progress. Your body can become dependent on this medicine. Ask your doctor or health med care manager if you still need to take it. You may get drowsy or dizzy. Do not drive, use machinery, or do anything that needs mental alertness until you know how this medicine affects you. To reduce the risk of dizzy and fainting spells, do not stand or sit up quickly, especially if you are an older patient. Alcohol may increase dizziness and drowsiness. Avoid alcoholic drinks. Do not treat yourself for coughs, colds or allergies without asking your doctor or health med care manager for advice. Some ingredients can increase possible side effects. You have been given the following additional information: Chest Pain, Noncardiac Diet, [place] (Adult) Alprazolam Oral tablet No strenuous activity. Rest. Do not work for two days until better. (Electronically signed by Luigi Malik MD 04/04/2017 20:49)
--- NOTE | 2017-04-04 20:49 | ED MAR SUMMARY ---
..... Medication Administration Record [facility] [address] [place] [address] Patient: SUSANA DAVIS Visit ID: [id number] 41y, F Weight: 108.8 kg Height/Length: 63 in BMI: 42.5 ALLERGIES: None Given 03:40 04/04/2017 Ida Montgomery, Medication Administered: ALPRAZOLAM [PO], Dose: 0.5 mg Tablets PO. Medication Ordered: Alprazolam PO 0.5 mg (NOW).
--- NOTE | 2017-04-04 20:49 | ED MAR SUMMARY ---
..... Medication Administration Record [facility] [address] [place] [address] Patient: SUSANA DAVIS Visit ID: [id number] 41y, F Weight: 108.8 kg Height/Length: 63 in BMI: 42.5 ALLERGIES: None Given 03:40 04/04/2017 Ida Montgomery, Medication Administered: ALPRAZOLAM [PO], Dose: 0.5 mg Tablets PO. Medication Ordered: Alprazolam PO 0.5 mg (NOW).
== END 2017-04-04 05:05 | disposition home or self-care (01) ==
LOC: ED SRH 02:41
DX: R07.89 Other chest pain (principal)
CPT/HCPCS: 90100; 90616; 91320; 91556; 92610; 92720; 93140; 95059